=== PATIENT | female | born 1970 | race Caucasian/White ===

== ENCOUNTER 2016-11-17 18:23 | Emergency (ER) | payer SELFPAY ==
[2016-11-17 19:28] VITALS: BP 150/81
[2016-11-17] MEDS ORDERED: Fluorescein Sodium TOPICAL* 1 MG TEST ONE (19:56)
[2016-11-17] MEDS ORDERED: BSS OPTH.SOL* BTL ONE (19:56)
[2016-11-17] MEDS ORDERED: Tetracaine 0.5% OPTH.SOL 15ML* BTL ONE (19:57)
[2016-11-17] MEDS ORDERED: Neomycin/Polym/HC OPTH.SUSP* 10 ML LEFT EYE ONE (20:04)
[2016-11-17] MEDS ORDERED: Neomyc/Polym/HC 1% OTIC SUSP* **OTIC ONE (20:18)
--- NOTE | 2016-11-17 20:22 | UC ---
Eye Complaint HPI - HPI Summary HPI Summary: LEFT EYE BURNING, REDNESS AND DISCHARGE. ONSET TODAY. - History of Current Complaint Chief Complaint: UCEye Stated Complaint: EYE IRRITATION Time Seen by Provider: 11/17/16 19:25 Hx Obtained From: Patient Hx Last Menstrual Period: 11/10/16 Onset/Duration: Sudden Onset, Lasting Hours, Still Present Severity Initially: Moderate Severity Currently: Moderate Location of Injury: Conjunctiva Character: Dull Aggravating Factor(s): Blinking Associated Signs And Symptoms: Positive: Photophobia, Drainage (Purulent). Negative: Vision Impairment Bilateral, Vision Impairment Right, Vision Impairment Left, Fever, Swelling - Risk Factors Penetrating Injury Risk Factor: Negative Acute Glaucoma Risk Factors: Negative Optic Artery Occlusion Risk Factors: Negative - Allergies/Home Medications Allergies/Adverse Reactions: Allergies Allergy/AdvReac Type Severity Reaction Status Date / Time Codeine Allergy Severe Vomiting Verified 11/22/12 16:20 Ibuprofen Allergy Severe Vomiting Verified 11/22/12 16:20 Oxycodone Allergy Severe Itching Verified 11/22/12 16:20 Aspirin Allergy Vomiting Verified 11/17/16 19:28 PMH/Surg Hx/FS Hx/Imm Hx Previously Healthy: Yes Endocrine History Of: Denies: Diabetes, Thyroid Disease Cardiovascular History Of: Denies: Cardiac Disorders, Hypertension Respiratory History Of: Denies: COPD, Asthma GI/ History Of: Denies: Ulcer - Surgical History Surgical History: Yes Surgery Procedure, Year, and Place: C SECTION, LEFT ARM SURGERY, tubal - Family History Known Family History: Negative: Respiratory Disease - Social History Occupation: Employed Full-time Lives: With Family Alcohol Use: Occasionally Substance Use Type: None Smoking Status (MU): Never Smoked Tobacco Have You Smoked in the Last Year: No Review of Systems Constitutional: Negative Skin: Negative Eyes: Eye Redness ENT: Negative Respiratory: Negative Cardiovascular: Negative Gastrointestinal: Negative Genitourinary: Negative Motor: Negative Neurovascular: Negative Musculoskeletal: Negative Neurological: Negative Psychological: Negative All Other Systems Reviewed And Are Negative: Yes Physical Exam Triage Information Reviewed: Yes Appearance: Well-Appearing, No Pain Distress Vital Signs: Initial Vital Signs Temp 97.9 F 11/17/16 19:24 Pulse 117 11/17/16 19:24 Resp 18 11/17/16 19:24 BP 150/81 11/17/16 19:24 Pulse Ox 100 11/17/16 19:24 Vital Signs Reviewed: Yes Eyes: Positive: Conjunctiva Inflamed, Discharge, Other: - SMALL LINEAR CORNEAL ABRASION ; FLOURESCEIN UPTAKE FROM 9 OCLOCK TO 3 OCLOCK ENT Exam: Normal ENT: Positive: Normal ENT inspection, Hearing grossly normal, Pharynx normal, TMs normal Dental Exam: Normal Neck exam: Normal Neck: Positive: Supple, Nontender Respiratory Exam: Normal Respiratory: Positive: Chest non-tender, Lungs clear, Normal breath sounds, No respiratory distress Cardiovascular Exam: Normal Cardiovascular: Positive: RRR, No Murmur, Pulses Normal Abdominal Exam: Normal Musculoskeletal Exam: Normal Musculoskeletal: Positive: Strength Intact, ROM Intact Neurological Exam: Normal Psychological Exam: Normal Psychological: Positive: Normal Response To Family Skin Exam: Normal Eye Complaint Course/Dx - Differential Dx/Diagnosis Differential Diagnosis/HQI/PQRI: Conjunctivitis, Corneal Abrasion Provider Diagnoses: LEFT EYE CONJUCTIVITIS/CORNEAL ABRASION Discharge - Discharge Plan Condition: Stable Disposition: HOME Patient Education Materials: Corneal Abrasion (ED), Conjunctivitis (ED) Forms: *Work Release Referrals: Eddie Pack MD [Primary Care Provider] - Rishi Ellington MD [Medical Doctor] -
--- NOTE | 2016-11-22 11:37 | PN ---
Progress Note - Progress Note Note: 11/21/16 1800 Left message for pt to call Dr. Rosas at [facility] on 11/22/16. 11/22/16 11:35am Left message for pt to call Dr. Rosas at [facility] today.
--- NOTE | 2016-11-22 14:23 | PN ---
Progress Note - Progress Note Note: 1355: Pt returned call from Dr Rosas at 13:14, and I returned call at 13:45. I informed pt that ear drops were dispensed for use in her eyes instead of eye drops, and I asked how pt was doing. Pt stated that she started using the drops in both eyes because infection spread to both eyes. States that the eyes are burning a bit and that she has some crusting. States her vision is fine. States she is doing cool compresses with good relief. I advised pt to stop the previous drops that were dispensed. I advised pt that she could return for re- exam at no charge and she declined a revisit. She asked if I could just send in another prescription. I advised pt that I would send in another prescription and I verified allergies, and that she is not on any meds. I advised pt that we would like to re-evaluate her and refer her if needed to her cell stripper, Dr. Ellington. Pt states that she will return for care tomorrow 11/23/16 or 11/24/16 if she is no better. I advised her that there would be no charge for a future visit at urgent care that is related to her eyes. 14:10 Next I spoke with Dr. Bolanos at Dr. Ellington's office and she would see pt today in consult. When I called pt back to tell her this and that Dr. Bolanos recommends that she be checked, pt states that she is fine and that she doesn't have transportation today. She states she will come to urgent care if she is worse. Verifies again that her vision is fine and that she will stop the drops that are dispensed and will start the new drops today. Each time I spoke with pt I verified name and . Of note, pt stated that Dr. Ellington was her doctor for glasses, but Dr. Ellington's office did not have pt in their computer. Dr. Bolanos stated that they would still see pt today even though they are booked.
--- NOTE | 2016-11-23 13:22 | UC ---
Progress - Progress Note Progress Note: Spoke With Geovanna Hall at 1320 today---pt states she is doing much better has no pain in her eyes, there is a small amount of crusty drainage and she is able to watch television without discomfort. Encouraged patient to follow up with eye care provider or return to Urgent Care for re-check---Nancy Burch [employer]er[employer]
== END 2016-11-17 20:25 | disposition home or self-care (01) ==
LOC: UCEAST 18:23
DX: S05.02XA Injury of conjunctiva and corneal abrasion without foreign body, left eye, initial encounter (principal); X58.XXXA Exposure to other specified factors, initial encounter; Y93.9 Activity, unspecified; Y92.9 Unspecified place or not applicable; H10.32 Unspecified acute conjunctivitis, left eye
CPT/HCPCS: 99212; A9270-GY; G0463

== ENCOUNTER 2019-01-19 06:50 | Observation (INO) | payer OTHER ==
[2019-01-19] MEDS ORDERED: NS 0.9% 1000 ML** 1,000 ML IV ONE (07:14)
[2019-01-19] MEDS ORDERED: Metoprolol Tartrate IV* 1 MG/ML 5 ML VIAL IV ONE (07:15)
--- NOTE | 2019-01-19 07:29 | ED ---
HPI Chest Pain - HPI Summary HPI Summary: This patient is a 48 year old F presenting to [facility] accompanied by daughter with a chief complaint of L anterior chest pain described as pounding with palpitations since 0330 this morning. Patient reports that she was awake during the first episode where she was awake getting ready for the day. The patient rates the pain 4-5/10 in severity which has been waxing and waning. The patient reports a rapid beating in her chest. Symptoms aggravated by nothing. Symptoms alleviated by nothing. The patient denies and dizziness, SOB, abdominal pain, radiating pain, numbness or tingling in her extremities, headache, nausea, diarrhea, coughs, and no significant personal cardiac history. The patient reported that her mother has significant cardiac history of 4 heart attacks between the ages of 50-70, HTN, HLD, and DM. Her brother also has significant cardiac history of fluid restriction, HLD, HTN, and DM. - History of Current Complaint Chief Complaint: EDChestPainROMI Hx Obtained From: Patient Hx Last Menstrual Period: 11/10/16 Onset/Duration: Started Hours Ago - 329, Still Present Time of Onset: 03:30 Timing: Constant, Intermittent - waxing and waning but always present Initial Severity: Moderate Current Severity: Moderate Pain Intensity: 5 Pain Scale Used: 0-10 Numeric Chest Pain Location: Left Anterior Chest Pain Radiates: No Character: Pounding, Other: - palpitating Aggravating Factor(s): Nothing Alleviating Factor(s): Nothing Associated Signs and Symptoms: Positive: Chest Pain, Other: - Negative: diarrhea. Negative: Headaches, Numbness, Tingling - in extremities, Dizziness, Shortness of Breath, Nausea, Cough, Productive Cough, Nonproductive Cough, Abdominal Pain, Vomiting - Allergy/Home Medications Allergies/Adverse Reactions: Allergies Allergy/AdvReac Type Severity Reaction Status Date / Time aspirin Allergy Vomiting Verified 01/19/19 06:59 codeine Allergy Vomiting Verified 01/19/19 06:59 ibuprofen Allergy Vomiting Verified 01/19/19 06:59 oxycodone Allergy Itching Verified 01/19/19 06:59 Home Medications: Home Medications NK [No Home Medications Reported] 01/19/19 [History Confirmed 01/19/19] PMH/Surg Hx/FS Hx/Imm Hx Previously Healthy: No Endocrine/Hematology History: Denies: Hx Diabetes, Hx Thyroid Disease Cardiovascular History: Denies: Hx Hypertension Respiratory History: Denies: Hx Asthma, Hx Chronic Obstructive Pulmonary Disease (COPD) GI History: Denies: Hx Ulcer Sensory History: Reports: Hx Contacts or Glasses Opthamlomology History: Reports: Hx Contacts or Glasses - Surgical History Surgery Procedure, Year, and Place: C SECTION, LEFT ARM SURGERY, tubal - Immunization History Date of Tetanus Vaccine: UNKNOWN Date of Influenza Vaccine: 2011 Infectious Disease History: No Infectious Disease History: Denies: Hx Clostridium Difficile, Hx Hepatitis, Hx Human Immunodeficiency Virus (HIV), Hx of Known/Suspected MRSA, Hx Shingles, Hx Tuberculosis, Hx Known/ Suspected VRE, Hx Known/Suspected VRSA, History Other Infectious Disease, Traveled Outside the [place] in Last 30 Days - Family History Known Family History: Positive: Cardiac Disease Negative: Respiratory Disease - Social History Alcohol Use: Occasionally Hx Substance Use: No Substance Use Type: Reports: None Hx Tobacco Use: No Smoking Status (MU): Never Smoked Tobacco Have You Smoked in the Last Year: No Review of Systems Positive: Other - Negative: dizziness Positive: Palpitations, Chest Pain Negative: Shortness Of Breath, Cough Positive: Other - Negative for radiating pain. Negative: Abdominal Pain, Vomiting, Diarrhea, Nausea Neurological: Other - Negative: tingling Negative: Headache, Numbness All Other Systems Reviewed And Are Negative: Yes Physical Exam - Summary Physical Exam Summary: Appearance: well appearing, no pain distress Skin: warm, dry, mild pallor Head/face: normal Eyes: EOMI, SANDRITA ENT: mucous membranes moist Neck: supple, non-tender Respiratory: CTA, breath sounds present, lungs are clear to auscultation Cardiovascular: Tachycardia, pulses symmetrical, trace edema in LE Abdomen: non-tender, soft Bowel Sounds: present Musculoskeletal: normal, strength/ROM intact Neuro: normal, sensory motor intact, A&Ox3 Triage Information Reviewed: Yes Vital Signs On Initial Exam: Initial Vitals Temp Pulse Resp BP Pulse Ox 97.0 F 116 20 163/79 100 01/19/19 06:57 01/19/19 06:57 01/19/19 06:57 01/19/19 06:57 01/19/19 06:57 Vital Signs Reviewed: Yes Diagnostics - Vital Signs Vital Signs Temp Pulse Resp BP Pulse Ox 01/19/19 07:21 100 01/19/19 07:10 97 19 100 01/19/19 07:03 101 19 159/82 100 01/19/19 06:57 97.0 F 116 20 163/79 100 - Laboratory Result Diagrams: 01/19/19 16:25 01/19/19 07:34 Lab Statement: Any lab studies that have been ordered have been reviewed, and results considered in the medical decision making process. - Radiology CXR Radiology Interpretation Completed By: Radiologist Summary of Radiographic Findings: IMPRESSION: NO ACTIVE CARDIOPULMONARY DISEASE. ED Physician has reviewed this report. - CT Chest/Thorax CTA CT Interpretation Completed By: Radiologist Summary of CT Findings: NO PULMONARY ARTERIAL FILLING DEFECT TO SUGGEST PULMONARY EMBOLISM. ED Physician has reviewed this report. - EKG 0652 Cardiac Rate: Tachycardia - 116 BPM EKG Rhythm: Sinus Tachycardia ST Segment: Non-Specific Summary of EKG Findings: Patient has sinus tachycardia of 116 BPM, normal axis, and a non-specific ST elevation. 1011 Cardiac Rate: NL - 83 BPM EKG Rhythm: Sinus Rhythm ST Segment: Normal Summary of EKG Findings: Normal sinus rhythym and rate of 83 BPM, normal axis, and normal ST elevation. Re-Evaluation - Re-Evaluation First Eval Re-Evaluation Time: 10:11 Change: Improved Comment: Patient was informed of her condition. Heart Rate normalized at 85 BPM and her pain rating was a 2/10 Chest Pain Course/Dx - Course Course Of Treatment: Patient with chest pain and exertional shortness of breath. She also is found to be anemic and reports dysfunctional uterine bleeding for some time now. She has a hemoglobin of 7 and negative Hemoccult. She was placed on heparin drip after that. She'll be transfused one unit of blood and admitted to the hospitalist service. There is no EKG changes. Second troponin was positive. - Chest Pain Differential Diagnosis/HQI/PQRI: Acute WA, ACS, CHF, Chest Wall, GI Disease, Lower Respiratory Infection - Diagnoses Provider Diagnoses: Iron deficiency anemia, Non-STEMI (non-ST elevated myocardial infarction), Acute coronary syndrome, Dysfunctional uterine bleeding - Provider Notifications Discussed Care Of Patient With: Juan C More Time Discussed With Above Provider: 10:00 Instructed by Provider To: Admit As Inpatient - Critical Care Time Critical Care Time: 30-74 min - CCT is EXCLUSIVE of separately billable procedures. Discharge - Sign-Out/Discharge Documenting (check all that apply): Patient Departure - admitted Patient Received Moderate/Deep Sedation with Procedure: No - Discharge Plan Condition: Guarded Disposition: ADMITTED TO [facility] - Billing Disposition and Condition Condition: GUARDED Disposition: Admitted to [facility] - Attestation Statements Document Initiated by Toryibe: Yes Documenting Scribe: Jam Moreira Provider For Whom Scribe is Documenting (Include Credential): Oumar Alfred MD Scribe Attestation: Jam Alvarado, scribed for Oumar Alfred MD on 01/19/19 at 1648. Scribe Documentation Reviewed: Yes Provider Attestation: The documentation as recorded by the Jam cunningham accurately reflects the service I personally performed and the decisions made by Oumar montague MD Status of Scribe Document: Viewed
[2019-01-19] MEDS ORDERED: Clopidogrel TAB* 75 MG PO ONE (07:30)
[2019-01-19 08:01] LABS: ALT 12 U/L (7-52); AST 19 U/L (13-39); Albumin 3.7 g/dL (3.2-5.2); Albumin/Globulin Ratio 0.9 (1-3); Alkaline Phosphatase 66 U/L (34-104); Anion Gap 7 mmol/L (2-11); Blood Urea Nitrogen 7 mg/dL (6-24); CO2 Carbon Dioxide 22 mmol/L (22-32); Chloride 107 mmol/L (101-111); EGFR African American 144.6 (>60); EGFR Non-African American 119.5 (>60); Globulin 3.9 g/dL (2-4); Glucose 113 mg/dL (70-100); Potassium 3.8 mmol/L (3.5-5.0); Sodium 136 mmol/L (135-145); Total Protein 7.6 g/dL (6.4-8.9)
[2019-01-19 08:02] LABS: Troponin I 0.01 ng/mL (<0.04)
[2019-01-19 08:11] LABS: Hematocrit 25 % (35-47); Mean Corpuscular HGB Conc 28 g/dL (31-36); Mean Corpuscular Hemoglobin 15 pg (27-31); Mean Corpuscular Volume 54 fL (80-97); Mean Platelet Volume 8.4 fL (7.4-10.4); Platelet Count 286 10^3/uL (150-450); Red Blood Count 4.66 10^6 /uL (3.70-4.87); Red Cell Distribution Width 23 % (10.5-15); White Blood Count 6.3 10^3/uL (3.5-10.8)
[2019-01-19 08:37] LABS: Microcytosis 3+
[2019-01-19 08:39] LABS: ABS Basophils 0.1 10^3/ul (0-0.2); ABS Neutrophils 4.2 10^3/ul (1.5-7.7)
[2019-01-19] MEDS ORDERED: Iohexol 350* (CONTRAST) 500 ML MDV IV ONE (08:52)
[2019-01-19 10:11] LABS: Troponin I 0.06 ng/mL (<0.04)
[2019-01-19] MEDS ORDERED: Heparin DRIP 25,000 UNITS(*) 25,000 UNITS/500 ML BAG IV SCH (10:15)
[2019-01-19] MEDS ORDERED: Nitro 2% OINT* (Nitroglycerin) 1 INCH/PAK PAK TOPICAL ONE (10:26)
[2019-01-19 10:38] LABS: Activated Partial Thrombo Time 29.9 seconds (26.0-36.3)
[2019-01-19] MEDS ORDERED: Heparin VIAL(*) 5000 UNITS/ML VIAL (FIVE THOUSAND) IV SCH (11:00)
[2019-01-19 11:02] LABS: RBC Retic Count 4.66 10^6/uL (3.70-4.87)
[2019-01-19 11:03] LABS: Corrected Retic Count 1.1 % (0.5-1.5); Hematocrit for Retic CNT 25 % (35-47)
[2019-01-19 11:12] LABS: Total Iron Binding Capacity 522 mcg/dL (250-450); Transferrin 373 mg/dL (203-362)
[2019-01-19 11:14] LABS: % Iron Saturation 3 % (15-55); Iron < 17 ug/dL (50-212)
[2019-01-19 11:32] LABS: Ferritin 5.5 ng/mL (11-307)
[2019-01-19] MEDS ORDERED: Metoprolol Tartrate TAB* 25 MG PO SCH (12:00)
[2019-01-19] MEDS ORDERED: Nitroglycerin TAB 0.4 MG* 0.4 MG TAB SL PRN (12:01)
--- NOTE | 2019-01-19 13:32 | ECHO ---
*[facility]* [place] [address] Fax #: [phone] Patient: Rafael, Height: 69 in / Geovanna De Guzman 175.3 cm : 1970 Weight: 207.6 lb / Study Date: 01/19/2019 94.3 kg Age: 48 BP: 124 / 65 Gender: F BMI/BSA: 30.7 kg/m^2 HR: 89 bpm / 2.1 m^2 *Cad Draftsman: * Jennifer Desir [facility] *Referring Physician: * Lina MorleyReading Physician: * Mari Soto MD Indications: Chest Pain, unspecified. Myocardial Infarction (new). History: Risk factors: Family history is significant for coronary artery disease. Conclusions Summary: 1. Left ventricle: The cavity size is normal. Wall thickness is normal. Systolic function is normal. The estimated ejection fraction is 60-65%. Wall motion is normal; there are no regional wall motion abnormalities. 2. Mitral valve: There is trace regurgitation. 3. Aortic valve: There is trace regurgitation. 4. No previous echocardiogram available. Study data: Procedure: Transthoracic echocardiography was performed. Image quality was fair. Complete 2D, spectral Doppler, and color flow Doppler. Location: Emergency department. Patient status: Inpatient. Patient room number: ED-4. Rhythm: Normal sinus rhythm. Findings Left ventricle: The cavity size is normal. Wall thickness is normal. Systolic function is normal. The estimated ejection fraction is 60-65%. Wall motion is normal; there are no regional wall motion abnormalities. Doppler parameters are consistent with abnormal left ventricular relaxation (grade 1 diastolic dysfunction). Right ventricle: The cavity size is mildly dilated. Wall thickness is moderately increased. Systolic function is normal. Left atrium: The atrium is mildly dilated. Right atrium: The atrium is mildly dilated. Mitral valve: The leaflets are mildly thickened. There is no evidence of stenosis. There is trace regurgitation. Aortic valve: The valve is trileaflet. The leaflets are normal thickness. There is no evidence of stenosis. There is trace regurgitation. Tricuspid valve: The leaflets are normal thickness. There is no evidence of stenosis. There is physiologic regurgitation. Pulmonic valve: The leaflets are normal thickness. There is no evidence of stenosis. There is no significant regurgitation. Aorta: Ascending aorta: The ascending aorta is appears normal. Aortic arch: The aortic arch is appears normal. The aortic root is not dilated. Pericardium: A prominent pericardial fat pad is present. There is no pericardial effusion. Pulmonary arteries: The main pulmonary artery is normal-sized. Systolic pressure can not be accurately estimated. Systemic veins: Inferior vena cava: The vessel is normal in size. The respirophasic diameter changes are in the normal range (>= 50%). Measurements Left ventricle Value Ref Right atrium continued Value Ref NEIL, LAX 4.6 cm 3.8 - 5.2 SI dim, ES, A4C 4.9 cm 3.4 - 5.3 ESD, LAX 2.9 cm 2.2 - 3.5 Estimated RAP 3 mm Hg --------- FS, LAX 40 % 45 PW, ED, LAX 0.9 cm 0.6 - 0.9 Aortic valve Value Ref FS 40 % - 45 Keagan diam, ED 2.3 cm --------- PW, ED 0.9 cm 0.6 - 0.9 Peak v, S 1.26 m/sec --------- E', lat keagan, TDI 12.8 cm/sec >=10.0 VTI, S 21.7 cm -- ------- E/e', lat keagan, 7 Mean grad, S 2.0 mm Hg ----- ---- TDI Peak grad, S 6.0 mm Hg --------- E', med keagan, TDI 8.6 cm/sec >=7.0 LVOT/AV, VTI ratio 0.97 -- ------- E/e', med keagan, 10 TDI Mitral valve Value Ref E', avg, TDI 10.7 cm/sec Peak E 0.88 m/sec ----- ---- E/e', avg, TDI 8 <=14 Peak A 0.97 m/sec -- ------- Decel time 271 ms --------- LVOT Value Ref Peak grad, D 3.1 mm Hg --------- Peak ronald, S 1.15 m/sec Peak E/A ratio 0.9 --------- VTI, S 21.0 cm Peak grad, S 5 mm Hg Pulmonic valve Value Ref Mean grad, S 2 mm Hg Peak v, S 1.54 m/sec --------- Peak grad, S 9.0 mm Hg --------- Ventricular septum Value Ref IVS, ED 0.9 cm 0.6 - 0.9 Aortic root Value Ref Root diam 3.1 cm <4.2 Right ventricle Value Ref AW thickness, ED (H) 1.1 cm 0.1 - 0.5 Ascending aorta Value Ref NEIL, LAX 3.5 cm AAo AP diam, S 3.3 cm --------- NEIL minor ax, (H) 4.4 cm 1.9 - 3.5 A4C mid Aortic arch Value Ref Arch diam 2.2 cm --------- Left atrium Value Ref AP dim, ES (H) 4.10 cm 2.70 - Decending aorta Value Ref 3.80 Maribeth peak ronald 1.35 m/sec --------- ML dim, A4C 4.7 cm SI dim, A4C 5.4 cm Inferior vena cava Value Ref Vol/bsa, ES, 1-p 33 ml/m^2 11 - 40 Diam 2.1 cm --------- A4C Vol/bsa, ES, A/L 34 ml/m^2 16 - 34 Right atrium Value Ref SI dim, ES 4.9 cm 3.4 - 5.3 ML dim, ES, A4C (H) 4.7 cm 2.6 - 4.4 Legend: (L) and (H) ovi values outside specified reference range. Prepared and electronically signed by Mari Soto MD 01/19/2019 13:32
[2019-01-19 13:55] LABS: Troponin I 0.32 ng/mL (<0.04)
--- NOTE | 2019-01-19 15:26 | HP ---
CC: Dr. Rizvi" at [facility]* HISTORY AND PHYSICAL: DATE OF ADMISSION: 01/19/19 PRIMARY CARE PROVIDER: Dr. Rizvi" at [facility]. ATTENDING PHYSICIAN: Dr. More* (dictated by ELIANE Sheppard). CHIEF COMPLAINT: Left upper chest pain, left shoulder, left elbow pain. HISTORY OF PRESENT ILLNESS: Ms. Hall is a 48-year-old female with no reported past medical history except seizures as a child and MS as a child, who presented to the ER early this morning with complaints of chest pain. The patient states that she woke up at approximately 3 a.m. to get ready for work. She noted that she had left shoulder and left elbow pain as well as left upper chest pain. She notes that the pain was crushing. She figured that she had slept on her arm wrong. She proceeded to go to work. At approximately 4:30, she saw a nurse at her work, who advised that she come to the ER. She was driven to the ER and arrived around 7 a.m. where she was given nitro and clopidogrel due to ASPIRIN allergy. She reports that her pain all morning was 4 -5/10. Once nitro was given, her pain has been reduced to 1-2/10. She notes that her pain continues to remain at 1-2/10, but does note that she still has crushing chest pain. She notes that she also had palpitations at that time. She has a history of right lower extremity swelling, but she attributes this to right foot surgery in the past. She denies jaw pain, shortness of breath, diaphoresis. She denies previous episodes such as this. She denies cardiac medical history. In the ER, she received a full workup. She was noted to be anemic with a hemoglobin of 7. The patient reports that she gets her menses every 2 weeks and that it last approximately 8 to 10 days. She has not sought medical attention for this. This has been going on for approximately 1 year. The patient's arrival EKG shows some slight ST depression in leads I, II, V3, V6. EKG around 10 a.m. shows normal sinus rhythm without ST changes. Again, the patient has anemia with an H and H of 7 and 25 respectively. It is unclear whether the patient is experiencing an UT or if she is having demand ischemia, which is causing elevated troponins. Troponin was negative at first, but following troponin was 0.06. The hospitalist team was asked to evaluate the patient for admission. PAST MEDICAL HISTORY: The patient reports a history of MS as a child. She also reports a history of seizures as a child. She notes that she has had no seizures or no seizure medications since the age of 6. PAST SURGICAL HISTORY: , right foot, left forearm, dental. HOME MEDICATIONS: 1. Advil. 2. Imodium. DRUG ALLERGIES: ASPIRIN, CODEINE, IBUPROFEN, OXYCODONE. FAMILY HISTORY: Diabetes mellitus, UT, colon cancer, other unknown cancer, CVA. SOCIAL HISTORY: Ms. Hall denies current and former use of tobacco. She states that she drinks approximately 2 drinks every 3 months. She denies use of illicit drugs. She lives with her boyfriend, daughter, son-in-law, and granddaughter. In the event that she is unable to make her own medical decisions, she has appointed her daughter, Dania Mesa, to be her surrogate decision maker. REVIEW OF SYSTEMS: A 10-point review of systems was performed and all the pertinent positives and negatives are in the HPI. All other systems are negative. PHYSICAL EXAMINATION GENERAL: Ms. Hall is a well-developed, well-nourished, obese, middle-aged white woman. She is sitting up in bed. She appears to be in no acute distress. She is cooperative and pleasant. She states that she is scared, but appears to be in no acute distress. VITAL SIGNS: Temperature 97.0 temporal, heart rate 82, respiratory rate 18, oxygen saturation 100% on room air, blood pressure 133/70. HEENT: Visual panchal grossly intact. PERRL. Extraocular movements intact. The patient's hearing is grossly intact. She is edentulous. Oral mucous membranes are moist. There are no lesions. The pharynx is clear. RESPIRATORY: Symmetrical chest expansion without use of accessory muscles. The lungs are clear to auscultation bilaterally without rhonchi, wheeze, or rales. CARDIOVASCULAR: Regular rate and rhythm with S1, S2 present. There are no murmurs, rubs, clicks, or gallops. There is no JVD. ABDOMEN: Obese. Bowel sounds noted in all quadrants. The abdomen is soft. There is no tenderness to palpation. There is no hepatosplenomegaly. EXTREMITIES: Skin is warm and smooth bilaterally. There is no clubbing or cyanosis. The patient has trace edema to bilateral lower extremities. Radial and pedal pulses are palpable. NEURO: The patient is awake. She is alert and oriented x3. She is able to move all of her extremities. DIAGNOSTIC STUDIES/LAB DATA: Chest x-ray, 01/19/19: No active cardiopulmonary disease. CTA, 01/19/19, impression: No pulmonary arterial filling defect to suggest pulmonary embolism. EKG, 01/19/19 at 07:00: Slight ST depression in I, II, V3, V4, V5, V6; tachycardic. EKG, 01/19/19 at 10:00: Normal sinus rhythm. No ST changes. Laboratory data: HGB 7, HCT 25, MCV 54, MCH 15, RDW 23. D-dimer 444. Glucose 113. Iron less than 17, total iron binding capacity 522, percent saturation 3, transferrin 373, ferritin 5.5. Troponin 0.01, 0.06. B12 of 342. ASSESSMENT AND PLAN: Ms. Hall is a 48-year-old female with no significant past medical history, who presented to the ER today with complaints of left upper chest pain, left shoulder pain, left elbow pain. She was found to have positive troponin. The patient will be admitted to observation for: 1. Chest pain. Again, the patient presents with crushing chest pain to the left upper chest, which has been relieved with nitro. EKG upon arrival showed some slight ST depression. Consecutive EKG performed 3 hours later shows normal sinus rhythm. The patient will be admitted on telemetry. An echo has been ordered. The patient will be started on 12.5 metoprolol tartrate q.12 hours. Cardiac consult has been placed and Dr. Soto has been notified. Heparin drip has been initiated. Nitro is ordered. Troponins will be trended. Lipids and hemoglobin A1c are added. EKG will be repeated at 1600. It is unclear whether the patient is experiencing an myocardial infarction or if this is a demand ischemia in the setting of anemia. 2. Anemia. The patient denies any history of anemia, although she does note that she has had dysfunctional uterine bleeding for the last approximately 1 year. She has no signs and symptoms of gastrointestinal bleeding. Stool for occult blood was negative. One unit of packed red blood cells has been ordered. Iron studies are also ordered and revealed an iron-deficiency anemia. The patient will be started on iron pills. 3. Abnormal uterine bleeding. The patient notes approximately 1 year of q.2 week menses that last 8 to 10 days. The patient should receive further workup, which may include referral to Gynecology and uterine ultrasound. 4. FEN: The patient will be placed on a heart-healthy diet with no caffeine for the time being. 5. DVT prophylaxis: The patient is placed on a heparin drip at the current time. TIME SPENT: Approximately 60 minutes was spent on this admission, greater than half that time was spent with the patient obtaining history, performing physical , and reviewing the plan of care. The case has been reviewed with my attending, Dr. More, who is in agreement with the plan of care. ELIANE ANGELA [id number]/[facility] #: [id number] HASMUKH
--- NOTE | 2019-01-19 16:27 | CONS ---
CC: Hospitalist Service; Dr. Soto; [facility] CARDIOLOGY CONSULT: DATE OF CONSULT: 01/19/19 HISTORY OF PRESENT ILLNESS: I was asked by Hospitalist Service to see this 48-year- old female patie nt, who presented to the emergency room with symptoms of chest pain this morning. The patient gives no past medical history of any major medical condition according to her. She gives no history of car diac disease, no history of hypertension, no diabetes. She is not even on outpatient medications. S he gives no hyperlipidemia. She does have obesity. She gives no smoking. She gives no history of d rug abuse. She has family history of coronary artery disease and her mom had history of coronary art nkechi disease. She said she woke up this morning, was feeling some pressure in her chest. She went to work and then she had some elbow pain. She had no nausea, no vomiting, no jaw pain, no arm pain. T he pain did increase over time and her son-in-law drove her to the emergency room. In the emergency room, she had a troponin initially at 0.01 at 7:34 this morning, then it did go up to 0.06 at 9:44 th is morning; however, that was in the setting of significant severe anemia with a hemoglobin of 7, hem atocrit 25, and significant iron-deficiency anemia with an iron less than 17, which is significantly low. She gives no bleeding. She gives no nausea, no vomiting, no hematochezia, no shortness of liliya th, no orthopnea, no hematemesis, no skin rash, no tremors, no palpitations appreciated. Cardiology consult was further requested because of the abnormal troponin, mildly elevated. She is chest pain-f ree after she received heparin and nitroglycerin in the emergency room and she was started on beta-bl ocker. PAST MEDICAL HISTORY: As outlined above. PAST SURGICAL HISTORY: She had history of section and teeth surgery in the past. ALLERGIES: She had some allergy to ASPIRIN and OXYCODONE. FAMILY HISTORY: She does have family history of coronary artery disease and her mom had history of c oronary artery disease. SOCIAL HISTORY: She has 1 kid, doing well. She gives no history of smoking, drinking, or illicit dr ug use. REVIEW OF SYSTEMS: Her review of all other systems essentially is negative. PHYSICAL EXAM: On exam, she is awake, alert, and oriented. She is not in acute distress and she is chest pain-free. Her vitals: Blood pressure 124/65; pulse 87, she is in sinus rhythm. Head and Nec k Exam: Normocephalic, atraumatic head. Ears, Nose, and Throat: Essentially benign. Neck: Supple. JVP is not elevated. No carotid bruits. No masses in the neck are appreciated. Chest: Clear to a uscultation. No rales, no wheeze. No added sounds appreciated. Heart: Normal S1, S2. No added so unds. No gallops, no rubs, no significant murmurs. Abdomen: Benign, soft. Positive bowel sounds. Extremities: No edema, no cyanosis, no clubbing. Skin exam is normal. Psych: Normal affect and mo od. BUSINESS ECONOMIST: No focal deficits appreciated. DIAGNOSTIC STUDIES/LAB DATA: Her labs showed sodium 136, potassium 3.8, chloride 107, total CO2 of 2 2, BUN 7, creatinine 0.54. Her iron less than 17 and saturation percent is 3%. Her ferritin 5.5. T roponin 0.01, the second one 0.06, and the third one at 1:17 p.m. 0.32. Her EKG initially in the emergency room showed her to be in sinus tachycardia and that was this morni ng. There was heart rate 116 beats per minute, borderline ST depression in V4, V5, V6 and those were normalized actually in the second EKG that was done at 10 o'clock, sinus rhythm, heart rate 83 beats per minute. Her chest x-ray was reported to have no active cardiopulmonary disease. Her CTA of the chest: No pulmonary embolism. Her echocardiogram done today showed normal left ventricular systolic function and normal wall motion with an EF of 60% to 65%. No significant valvular disease. IMPRESSION: The patient is a 48-year-old female patient with: 1. Presentation with chest pain, borderline abnormal EKG, but that was with sinus tachycardia and mi ldly elevated troponin, but that was in the setting of severe iron-deficiency anemia. 2. Severe iron-deficiency anemia with a hemoglobin of 7, hematocrit 25. 3. Normal left ventricular systolic function by an echo done today with hyperdynamic EF and normal w all motion. No significant valvular disease. 4. Family history of coronary artery disease. 5. Obesity. PLAN: The patient is currently chest pain-free. We are monitoring very closely serial EKGs and trop onins. I agree with your initial management with the heparin, nitro, beta-michelle. She has no activ e bleeding and I agree with iron deficiency management. I think once she stabilizes from her iron de ficiency and I understand she is receiving now 1 unit of packed red blood cell, once she stabilizes, then a discussion will be further for noninvasive stress test to evaluate any evidence of ischemia. Her elevated troponin could be related to her anemia with a demand situation. I answered all her con cerns and questions up to her satisfaction. We will follow her very closely. We will make further r ecommendations. Thank you very much for asking us to participate in the care of this patient. [id number]/[facility] #: [id number]
[2019-01-19 16:45] LABS: Hematocrit 25 % (35-47)
[2019-01-19 16:54] LABS: Troponin I 0.38 ng/mL (<0.04)
[2019-01-19 20:15] LABS: Troponin I 0.31 ng/mL (<0.04)
[2019-01-19] MEDS: Acetaminophen TAB* 325 MG PO PRN (23:01)
[2019-01-19] MEDS: Metoprolol Tartrate TAB* 25 MG PO SCH (23:02)
[2019-01-20 01:08] LABS: Hematocrit 27 % (35-47); Hemoglobin 7.8 g/dL (12.0-16.0)
[2019-01-20 07:18] LABS: Hematocrit 27 % (35-47); Hemoglobin 8.1 g/dL (12.0-16.0); Mean Corpuscular HGB Conc 30 g/dL (31-36); Mean Corpuscular Hemoglobin 18 pg (27-31); Mean Corpuscular Volume 60 fL (80-97); Mean Platelet Volume 8.4 fL (7.4-10.4); Platelet Count 242 10^3/uL (150-450); Red Blood Count 4.56 10^6 /uL (3.70-4.87); Red Cell Distribution Width 30 % (10.5-15); White Blood Count 5.3 10^3/uL (3.5-10.8)
[2019-01-20 07:22] LABS: HDL Cholesterol 37.8 mg/dL
[2019-01-20 08:10] LABS: Nucleated Red Blood Cells % 0.1
[2019-01-20 08:13] LABS: ABS Neutrophils 2.8 10^3/ul (1.5-7.7); Microcytosis 2+
[2019-01-20] MEDS: Metoprolol Tartrate TAB* 25 MG PO SCH (08:13)
[2019-01-20 08:14] LABS: ABS Basophils 0.2 10^3/ul (0-0.2); ABS Eosinophils 0.1 10^3/ul (0-0.6)
[2019-01-20] MEDS: Acetaminophen TAB* 325 MG PO PRN (08:14)
[2019-01-20] MEDS ORDERED: Heparin DRIP 25,000 UNITS(*) 25,000 UNITS/500 ML BAG IV SCH (08:15)
[2019-01-20] MEDS ORDERED: Clopidogrel TAB* 75 MG PO SCH (09:00)
[2019-01-20] MEDS ORDERED: Ferrous Sulfate TAB* 325 MG PO SCH (09:00)
[2019-01-20 15:36] VITALS: BP 129/61
--- NOTE | 2019-01-20 19:17 | PN ---
Subjective Date of Service: 01/20/19 - CC: CP Interval History: The patient feels better, no recurrent CP. Since admission: 2 u PRBC, also plavix, heparin, metoprolol. Medications Active Medications: Acetaminophen (Tylenol Tab*) 650 mg PO Q6H PRN PRN Reason: Pain/Fever Last Admin: 01/20/19 08:14 Dose: 650 mg Clopidogrel Bisulfate (Plavix Tab*) 75 mg PO DAILY [facility] Last Admin: 01/20/19 08:13 Dose: 75 mg Ferrous Sulfate (Ferrous Sulfate Tab*) 325 mg PO DAILY [facility] Last Admin: 01/20/19 08:13 Dose: 325 mg Heparin Sodium (Porcine) (Heparin Vial(*)) 0 units IV .PER PROTOCOL [facility] Last Admin: 01/19/19 10:47 Dose: 4,000 units Metoprolol Tartrate (Lopressor Tab*) 12.5 mg PO Q12HR [facility] Last Admin: 01/20/19 08:13 Dose: 12.5 mg Nitroglycerin (Nitroglycerin Tab 0.4 Mg*) 0.4 mg SL Q5M PRN PRN Reason: ANGINA Objective Vital Signs: Temp Pulse Resp BP Pulse Ox 97.5 F 63 20 129/61 100 01/20/19 15:32 01/20/19 15:32 01/20/19 15:32 01/20/19 15:32 01/20/19 15:32 Vital Signs 01/19/19 01/19/19 01/19/19 19:24 19:37 20:27 Temperature 97.9 F 97.7 F Pulse Rate 84 82 Respiratory 24 18 20 Rate Blood Pressure 139/57 112/50 (mmHg) O2 Sat by Pulse 99 98 Oximetry 01/19/19 01/19/19 01/19/19 20:35 23:29 23:30 Temperature 98.6 F 98.5 F 97.8 F Pulse Rate 76 66 67 Respiratory 20 20 20 Rate Blood Pressure 108/45 117/59 117/67 (mmHg) O2 Sat by Pulse 99 99 Oximetry 01/20/19 01/20/19 01/20/19 03:44 07:26 11:05 Temperature 97.5 F 97.7 F 97.7 F Pulse Rate 64 67 62 Respiratory 16 16 18 Rate Blood Pressure 107/66 106/51 120/58 (mmHg) O2 Sat by Pulse 99 100 100 Oximetry 01/20/19 15:32 Temperature 97.5 F Pulse Rate 63 Respiratory 20 Rate Blood Pressure 129/61 (mmHg) O2 Sat by Pulse 100 Oximetry Oxygen Devices in Use Now: None Appearance: older middle aged woman, seated in chair, multiple family members, comfortable. Eyes: No Scleral Icterus, PERRLA Neck: Trachea Midline Respiratory: Symmetrical Chest Expansion and Respiratory Effort, Clear to Auscultation Cardiovascular: NL Sounds; No Murmurs; No JVD, RRR Abdominal: - - overweight, normal bowel sounds. Extremities: No Edema Skin: - - few areas of excoriation on anterior chest, no pallor. Freckled. Lines/Tubes/Other Access: Clean, Dry and Intact Peripheral IV Laboratory Results: 01/20/19 06:39 01/19/19 07:34 APTT 53.6 seconds (26.0-36.3) H 01/20/19 06:39 Total Bilirubin 0.40 mg/dL (0.2-1.0) 01/19/19 07:34 AST 19 U/L (13-39) 01/19/19 07:34 ALT 12 U/L (7-52) 01/19/19 07:34 Alkaline Phosphatase 66 U/L (34-104) 01/19/19 07:34 Total Protein 7.6 g/dL (6.4-8.9) 01/19/19 07:34 Albumin 3.7 g/dL (3.2-5.2) 01/19/19 07:34 Globulin 3.9 g/dL (2-4) 01/19/19 07:34 Albumin/Globulin Ratio 0.9 (1-3) L 01/19/19 07:34 Triglycerides 73 mg/dL 01/20/19 06:39 Cholesterol 143 mg/dL 01/20/19 06:39 LDL Cholesterol 91 mg/dL 01/20/19 06:39 HDL Cholesterol 37.8 mg/dL 01/20/19 06:39 01/19/19 01/19/19 01/19/19 07:34 09:44 13:17 Troponin I 0.01 0.06 H* 0.32 H* 01/19/19 01/19/19 16:25 19:49 Troponin I 0.38 H* 0.31 H* Diagnostic Imaging: TM stress test: Achieved 81% or target HR, 4.6 mets. No inducible ischemia by ECG criteria. Rare PVC's ECG this AM, NSR, normal ST's. Assessment/Plan 48 yo admitted with CP in the setting of marked anemia due to frequent ( bimonthly) and heavy menses. Increased trops. Clinically improved and no ischemia at maximal exercise able to do with ankle issues. OK to send home. I would stop plavix to decrease the chance of more aggressive bleeding with menses. I would continue metoprolol. Option to add low dose statin to get LDL to 70, but trops could represent demand ischemia (not large vessel disease) and lipids overall very good. Agree with plans for f/u with primary care and gynecologist to further evaluate and stabilize uterine bleeding.
== END 2019-01-21 06:18 | disposition home or self-care (01) ==
LOC: ED 06:50 → MEDTELE 11:27
PROVIDERS: ADMIT Internal Medicine; ATTEND Internal Medicine
DX: D64.9 Anemia, unspecified (principal); N92.0 Excessive and frequent menstruation with regular cycle; R07.89 Other chest pain; Z88.6 Allergy status to analgesic agent; R00.2 Palpitations; N94.89 Other specified conditions associated with female genital organs and menstrual cycle; E66.9 Obesity, unspecified; Z82.49 Family history of ischemic heart disease and other diseases of the circulatory system
CPT/HCPCS: 36415; 36430; 71045; 71275; 80053; 80061; 82272; 82607; 82728; 83036; 83540; 83550; 83605; 84484; 85014; 85018; 85025; 85045; 85060; 85379; 85730; 86850; 86900; 86901; 86922; 93005; 93306; 96374; 96375; 99284; A9270-GY; G0378; J1644; J3490; P9040; Q9967